=== PATIENT | male | born 1975 | race Caucasian/White ===

== ENCOUNTER 2017-05-26 19:46 | Emergency (ER) | payer BC ==
[2017-05-26 21:03] VITALS: BP 129/70
[2017-05-26] MEDS ORDERED: Ketorolac 60 MG/2 ML SDV IM ONE (22:19)
--- NOTE | 2017-05-26 22:20 | EDM.PDOC ---
ED HPI GENERAL MEDICAL PROBLEM - General Chief Complaint: General Stated Complaint: FELL OFF LADDER ON MON, HAVING MORE PAIN Time Seen by Provider: 05/26/17 22:07 Source of Information: Reports: Patient, Family History Limitations: Reports: No Limitations - History of Present Illness INITIAL COMMENTS - FREE TEXT/NARRATIVE: Fell Monday about 4:30pm 9 feet from a ladder. Was seen and xrays obtained. Feels like pain to right lower rib cage was worse today. Taking Ibuprofen for pain. Difficulty with position changes. No nausea. No fever. Appetite ok. Notes from the clinic reviewed. Onset: Today Onset Date: 05/26/17 Duration: Getting Worse Location: Reports: Chest Quality: Reports: Stabbing Severity: Moderate Improves with: Reports: Rest Worsens with: Reports: Movement Associated Symptoms: Reports: No Other Symptoms Right Chest Pain Score (Numeric/FACES): 10 - Related Data Allergies Allergy/AdvReac Type Severity Reaction Status Date / Time No Known Allergies Allergy Verified 05/26/17 21:51 Home Meds: Home Meds NK [No Known Home Meds] 05/26/17 [History] Past Medical History HEENT History: Reports: Impaired Vision - Infectious Disease History Infectious Disease History: Reports: Chicken Pox - Past Surgical History GI Surgical History: Reports: Appendectomy Social & Family History - Tobacco Use Smoking Status *Q: Current Every Day Smoker Years of Tobacco use: 20 Packs/Tins Daily: 0.5 Used Tobacco, but Quit: No Second Hand Smoke Exposure: Yes - Caffeine Use Caffeine Use: Reports: Coffee, Soda, Tea - Alcohol Use Days Per Week of Alcohol Use: 7 Number of Drinks Per Day: 2 Total Drinks Per Week: 14 - Recreational Drug Use Recreational Drug Use: No ED ROS GENERAL - Review of Systems Review Of Systems: See Below Constitutional: Reports: No Symptoms HEENT: Reports: No Symptoms Respiratory: Reports: Pleuritic Chest Pain Cardiovascular: Reports: No Symptoms Endocrine: Reports: No Symptoms GI/Abdominal: Reports: No Symptoms : Reports: No Symptoms Musculoskeletal: Reports: Arm Pain (right arm pain, splint in place) Skin: Reports: No Symptoms Neurological: Reports: No Symptoms Psychiatric: Reports: No Symptoms ED EXAM, GENERAL - Physical Exam Exam: See Below Exam Limited By: No Limitations General Appearance: Alert, WD/WN, No Apparent Distress Nose: Normal Inspection, Normal Mucosa, No Blood Throat/Mouth: Normal Inspection, Normal Lips, Normal Teeth, Normal Gums, Normal Oropharynx, Normal Voice, No Airway Compromise Head: Atraumatic, Normocephalic Neck: Normal Inspection, Supple, Non-Tender, Full Range of Motion Respiratory/Chest: No Respiratory Distress, Lungs Clear, Normal Breath Sounds, No Accessory Muscle Use, Chest Non-Tender Cardiovascular: Normal Peripheral Pulses, Regular Rate, Rhythm, No Edema, No Gallop, No JVD, No Murmur, No Rub GI/Abdominal: Normal Bowel Sounds, Soft, Non-Tender, No Organomegaly, No Distention, No Abnormal Bruit, No Mass, Other (pain with palpation over the right 8th rib, midclavicular line. No bruising noted.) Extremities: Other (right wrist splint in place) Course - Vital Signs Last Recorded V/S: Last Vital Signs Temp 96.8 F 05/26/17 21:55 Pulse 77 05/26/17 21:55 Resp 16 05/26/17 21:55 BP 129/70 05/26/17 21:55 Pulse Ox 97 05/26/17 21:55 - Orders/Labs/Meds Orders: Active Orders 24 hr Category Date Time Status HYDROmorphone [Dilaudid] Med 05/26/17 22:56 Once 1 mg IVPUSH ONETIME ONE Medication Orders Hydromorphone HCl (Dilaudid) 1 mg IVPUSH ONETIME ONE Stop: 05/26/17 22:57 Meds: Medications Generic Name Dose Route Start Last Admin Trade Name Freq PRN Reason Stop Dose Admin Hydromorphone HCl 1 mg 05/26/17 22:56 Dilaudid IVPUSH 05/26/17 22:57 ONETIME ONE Discontinued Medications Generic Name Dose Route Start Last Admin Trade Name Freq PRN Reason Stop Dose Admin Ketorolac Tromethamine 60 mg 05/26/17 22:19 05/26/17 22:35 Toradol IM 05/26/17 22:20 60 mg ONETIME ONE Administration Departure - Departure Time of Disposition: 22:59 Disposition: Home, Self-Care 01 Condition: Good Clinical Impression: Contusion of rib on right side Qualifiers: Encounter type: sequela Qualified Code(s): S20.211S - Contusion of right front wall of thorax, sequela - Discharge Information Referrals: Jamey Ribeiro MD [Primary Care Provider] - Forms: ED Department Discharge Additional Instructions: Clinic notes and xrays reviewed. In agreement with no fracture noted. Pt with no bruising on exam. Toradol 60mg IM given. Ice pack applied. Discussed continued use of antiinflammatories for pain. To limit activity as tolerated. Dilaudid 1mg IV given prior to discharge. will drive him home. Rx for Hydrocodone 5/325 1 tab q 4-6 hour prn pain. To followup if increased pain or shortness of breath. - Problem List & Annotations (1) Contusion of rib on right side SNOMED Code(s): 929666689 Code(s): S20.211A - CONTUSION OF RIGHT FRONT WALL OF THORAX, INITIAL ENCOUNTER Status: Acute Priority: Medium Current Visit: Yes Qualifiers: Encounter type: sequela Qualified Code(s): S20.211S - Contusion of right front wall of thorax, sequela - My Orders Last 24 Hours: My Active Orders 05/26/17 22:56 HYDROmorphone [Dilaudid] 1 mg IVPUSH ONETIME ONE - Assessment/Plan Last 24 Hours: My Active Orders 05/26/17 22:56 HYDROmorphone [Dilaudid] 1 mg IVPUSH ONETIME ONE
[2017-05-26] MEDS ORDERED: HYDROmorphone 1 MG/ML Syringe IVPUSH ONE (22:56)
== END 2017-05-26 23:14 | disposition home or self-care (01) ==
LOC: JP.ED 19:46
DX: S20.211S Contusion of right front wall of thorax, sequela (principal); F17.210 Nicotine dependence, cigarettes, uncomplicated; Z90.49 Acquired absence of other specified parts of digestive tract; W11.XXXA Fall on and from ladder, initial encounter
CPT/HCPCS: 96372; 96374; 99283; J1170; J1885

== ENCOUNTER 2022-06-30 19:12 | Emergency (ER) | payer BC ==
[2022-06-30] MEDS ORDERED: Nicotine 21 MG/24 Hr Patch ONE (19:55)
[2022-06-30] MEDS ORDERED: HYDROmorphone 1 MG/ML Syringe ONE ×2 (19:55)
[2022-06-30] MEDS ORDERED: Ondansetron 4 MG/2 ML SDV ONE (19:55)
[2022-06-30] MEDS ORDERED: Iopamidol 612 MG/ML 100 ML Bottle IV SCH (20:29)
[2022-07-25 19:35] LABS: ESTIMATED GFR 107 mL/min (>60)
[2022-07-25 19:36] LABS: TROPONIN I HIGH SENSITIVITY 17.3 pg/mL (<=60.3)
== END 2022-06-30 22:00 | disposition home or self-care (01) ==
LOC: JP.ED 19:12
DX: S22.42XA Multiple fractures of ribs, left side, initial encounter for closed fracture (principal)
CPT/HCPCS: 36415; 71260; 74177; 80053; 84484; 85025; 85610; 85730; 87635; 96374; 96375; 96376; 99284; A9270; J1170; J2405; Q9967; U0002